=== PATIENT | female | born 1985 | race Caucasian/White ===

== ENCOUNTER 2016-10-30 17:14 | Inpatient (IN) | payer MEDICAID ==
[~2016-10-30] VITALS: Ht 144.8 cm; Wt 78.8 kg
[2016-10-30] MEDS ORDERED: PRENAT PO (17:26)
[2016-10-30 17:27] VITALS: BP 128/78; PULSE 81; RESP 18; Ht 144.8 cm; Wt 78.8 kg
--- NOTE | 2016-10-30 17:57 | RADRPT ---
PROCEDURE: US biophysical profile. CLINICAL INDICATION: Decreased motion. The patient is in labor. TECHNIQUE: Multiple sonographic images of the uterus were obtained. The images were revi ewed on a PACS workstation. COMPARISON: No prior studies are available for comparison. FINDINGS: There is a single live intrauterine gestation. heart rate is 129 beats per minute. The position is cephalic. The placenta is fundal grade II with no abruption or previa. The ALDO is 15.3 cm. (Normal = 5-20 cm.) Breathing Movement: 2 Gross Body Movement: 2 Tone: 2 Qualitative Amniotic Fluid Volume: 2 TOTAL: 8 IMPRESSION: 1. The biophysical score is 8/8. RPTAT: QQ .Tez Renae MD, Date Time Electronically viewed and signed by .Tez Renae MD, on 10/30/2016 17:57 .R/
[2016-10-30] MEDS ORDERED: LACTATED RINGER'S 1,000 ML IV SCH ×2 (18:00→20:16)
--- NOTE | 2016-10-30 18:00 | RADRPT ---
PROCEDURE: US OB CLINICAL INDICATION: LABOR TECHNIQUE: Multiple sonographic images of the pelvis were obtained. The images were reviewed on a PACS workstation. COMPARISON: None FINDINGS: The cervix is not well visualized. There is a single viable intrauterine gestation. Cardiac activity is present with 143 beats per minute. There is a vertex presentation. The placenta is fundal. There is no evidence for an abruption or placenta previa. There is a subjectively normal amount of amniotic fluid. Measurements were made in order to determine age. The results are as follows (cm): BPD =9.43 HC =33.27 AC =34.92 FL =7.51 Estimated gestational age by ultrasound of approximately 38 weeks, 3 days. The estimated date of delivery by ultrasound is 11/10/2016. Estimated gestational age by LMP of approximately 37 weeks, 2 days. The estimated date of delivery by LMP is 11/18/2016. EFW = 3535 grams (87th percentile) IMPRESSION: Single viable intrauterine gestation of approximately 38 weeks, 3 days . The estimated date of delivery is 11/10/2016 . Dating by ultrasound is within 8 days of dating by LMP. Cephalic presentation. RPTAT: EE Physician Rakesh Date Time Electronically viewed and signed by Physician Rakesh on 10/30/2016 18:00 /
[2016-10-30 18:50] LABS: BASOPHILS % 0.6 % (0.0-2.0); EOSINOPHILS # 0.2 10^3/ul (0.0-0.5); EOSINOPHILS % 3.5 % (0.0-7.0); HEMATOCRIT 39.5 % (37.0-47.0); HEMOGLOBIN 13.7 g/dl (12.0-16.0); LYMPHOCYTES % 32.6 % (15.0-51.0); MEAN CORPUSCULAR HEMOGLOBIN 31.6 pg (29.0-33.0); MEAN CORPUSCULAR HGB CONC 34.6 g/dl (32.0-37.0); MEAN CORPUSCULAR VOLUME 91.3 fl (82.0-101.0); MEAN PLATELET VOLUME 10.3 fl (7.4-10.4); MONOCYTE # 0.5 10^3/ul (0.3-0.9); MONOCYTES % 8.6 % (0.0-11.0); NEUTROPHIL # 3.4 10^3/ul (1.6-7.5); NEUTROPHILS % 54.7 % (39.0-77.0); PLATELET COUNT 181 10^3/UL (140-440); RED BLOOD COUNT 4.32 10^6/ul (4.20-5.40); RED CELL DISTRIBUTION WIDTH 14.3 % (11.5-14.5); UNCORRECTED WBC 6.2 10^3/ul (4.8-10.8); WHITE BLOOD COUNT 6.2 10^3/ul (4.8-10.8)
[2016-10-30 19:01] LABS: CONDITION 1
[2016-10-30 19:02] LABS: INR 0.94; PROTIME 12.6 Sec (12.2-14.2)
[2016-10-30] MEDS ORDERED: CARBOPROST 250 MCG INJ IM PRN (20:30)
[2016-10-30] MEDS ORDERED: CEFAZOLIN 2 GM/50 ML (PMX) 50 ML IV SCH (20:30)
[2016-10-30] MEDS ORDERED: OXYTOCIN 30 UNITS/LR 500 ML IV PRN (20:30)
[2016-10-30] MEDS ORDERED: MISOPROSTOL 200 MCG TAB PR PRN (20:30)
[2016-10-30] MEDS ORDERED: OXYTOCIN 30 UNITS/LR 500 ML IV SCH (20:30)
[2016-10-30] MEDS ORDERED: METHYLERGONOVINE 0.2 MG INJ IM PRN (20:30)
--- NOTE | 2016-10-30 20:46 | TRIAGE ---
OB Triage Datetime Report Generated by CPN: 10/30/2016 20:46 Datetime: 10/30/2016 20:28 Assessment Type: Admission Assessment Vaginal Bleeding: None Maternal Assessment Level of Consciousness: Fully Conscious DTR's/Clonus: DTRs 2+; No Clonus Headache: Denies Blurred Vision: No Respiratory Effort: Unlabored; Regular Rhythm; Equal Expansion Breath Sounds, Left: Clear and Equal Breath Sounds, Right: Clear and Equal Nausea/Vomiting: Denies RUQ Epigastric Pain: Denies Lower Extremities Edema: None Degree: None Upper Extremities Edema: None Degree: None Facial Edema: None Fall Risk Assessment History of Falling: (0) No Secondary Diagnosis: (0) No Ambulatory Aid: (0) Bedrest/Nurse Assist IV Therapy: (20) Yes Gait: (0) Normal/Bedrest/Immobile Mental Status: (0) Oriented to Own Ability Fall Score: 20 Fall Risk Score Definition: No Risk: No action required Pain Assessment Pain Scale: 0 Pain Presence: None/Denies Pain Type: N/A Datetime: 10/30/2016 19:56 Labor Evaluation Frequency: 1-5 Monitor Mode: External Duration (sec)2399: 50-120 Quality: Mild Pattern: Normal: <= 5 Contractions in 10 Minutes Resting Tone [place]: Relaxed Heart Rate FHR Baseline Rate: 150 Monitor Mode: External US FHR Baseline Changes: No Baseline Change Variability: Moderate 6-25 bpm Accelerations: 15X15 Decelerations: None Category: Category I Datetime: 10/30/2016 19:32 Vaginal Exam Dilatation (cms): 0.0 Effacement (%): 0 Station: -3 Exam By: Brian OLIVEIRA RN Vaginal Bleeding: None Cervix, Consistency: Firm Cervix, Position: Posterior Datetime: 10/30/2016 19:10 Assessment Type: Admission Assessment Maternal Assessment Level of Consciousness: Fully Conscious DTR's/Clonus: DTRs 2+; No Clonus Headache: Denies Blurred Vision: No Respiratory Effort: Unlabored; Regular Rhythm; Equal Expansion Breath Sounds, Left: Clear and Equal Breath Sounds, Right: Clear and Equal Nausea/Vomiting: Denies RUQ Epigastric Pain: Denies Lower Extremities Edema: None Degree: None Upper Extremities Edema: None Degree: None Facial Edema: None Fall Risk Assessment History of Falling: (0) No Secondary Diagnosis: (0) No Ambulatory Aid: (0) Bedrest/Nurse Assist IV Therapy: (0) No Gait: (0) Normal/Bedrest/Immobile Mental Status: (0) Oriented to Own Ability Fall Score: 0 Fall Risk Score Definition: No Risk: No action required Datetime: 10/30/2016 19:09 Comments: LOSS OF CONTACT Datetime: 10/30/2016 18:44 Labor Evaluation Frequency: OCCAS Monitor Mode: External Duration (sec)2399: 50-100 Quality: Mild Pattern: Normal: <= 5 Contractions in 10 Minutes Resting Tone [place]: Relaxed Heart Rate FHR Baseline Rate: 135 Monitor Mode: External US FHR Baseline Changes: No Baseline Change Variability: Moderate 6-25 bpm Accelerations: 15X15 Decelerations: None Category: Category I Datetime: 10/30/2016 18:10 Labor Evaluation Frequency: IRREGULAR Monitor Mode: External Duration (sec)2399: 50-120 Quality: Mild Pattern: Normal: <= 5 Contractions in 10 Minutes Resting Tone [place]: Relaxed Heart Rate FHR Baseline Rate: 140 Monitor Mode: External US Variability: Moderate 6-25 bpm Accelerations: 15X15 Decelerations: None Category: Category I Datetime: 10/30/2016 17:31 Assessment Type: Admission Assessment Time of Arrival: 10/30/2016 20:37 EGA: 37.2 Arrived From: Dr. Office Maternal Assessment Level of Consciousness: Fully Conscious DTR's/Clonus: DTRs 2+; No Clonus Headache: Denies Blurred Vision: No Respiratory Effort: Unlabored; Regular Rhythm; Equal Expansion Breath Sounds, Left: Clear and Equal Breath Sounds, Right: Clear and Equal Nausea/Vomiting: Denies RUQ Epigastric Pain: Denies Lower Extremities Edema: None Degree: None Upper Extremities Edema: None Degree: None Facial Edema: None Fall Risk Assessment History of Falling: (0) No Secondary Diagnosis: (0) No Ambulatory Aid: (0) Bedrest/Nurse Assist IV Therapy: (0) No Gait: (0) Normal/Bedrest/Immobile Mental Status: (0) Oriented to Own Ability Fall Score: 0 Fall Risk Score Definition: No Risk: No action required Datetime: 10/30/2016 17:30 Time of Arrival: 10/30/2016 17:10 Arrived By: Ambulatory Arrived From: Office Chief Complaint: R/O LABOR Movement: Present Contractions: Denies/Absent Rupture of Membranes: Denies Vaginal Bleeding: None Vaginal Discharge: Denies Recent Sexual Intercouse: Denies Abdominal Trauma: Not Applicable Patient Complaints: Other Time Provider Notified: 10/30/2016 18:01 Provider Notified: DR FLOWERS Initial Plan: NST, BPP AND EFW
[2016-10-30] MEDS ORDERED: morphine SULFATE/PF (10 MG/10 ML) INJ ONE (21:18)
[2016-10-30] MEDS ORDERED: CITRIC ACID/NA CITRATE 30 ML CUP ONE (21:22)
[2016-10-30] MEDS ORDERED: KETOROLAC 30 MG INJ ONE (21:42)
[2016-10-30] MEDS ORDERED: METOCLOPRAMIDE 10 MG INJ ONE (21:42)
[2016-10-30] MEDS ORDERED: ONDANSETRON 4 MG INJ ONE (21:42)
[2016-10-30] MEDS ORDERED: OXYTOCIN 30 UNITS/LR 500 ML IV ONE ×2 (21:42→22:15)
[2016-10-30] MEDS ORDERED: MEPERIDINE 25 MG INJ IV PRN (22:00)
[2016-10-30] MEDS ORDERED: METOCLOPRAMIDE 10 MG INJ IV PRN (22:00)
[2016-10-30] MEDS ORDERED: CITRIC ACID/NA CITRATE 30 ML CUP PO ONE (22:00)
[2016-10-30] MEDS ORDERED: DIPHENHYDRAMINE 50 MG INJ IV PRN ×2 (22:00→23:30)
[2016-10-30] MEDS ORDERED: HYDROmorphONE (0.2 MG/ML) 10ML SYG IV PRN ×3 (22:00)
[2016-10-30] MEDS ORDERED: ONDANSETRON 4 MG INJ IV PRN ×2 (22:00→23:30)
--- NOTE | 2016-10-30 22:31 | HP ---
Date/Time of Note Date/Time of Note DATE: 10/30/16 TIME: 22:30 OB - History Hx of Present Free Text/Dictation @37+wks GA with history of previous c/section in Labor CX changed from 0 to 2 cm Variables : 2 Para: 1 Care: Good Care Ultrasounds: Normal mid trimester US Obstetrical Complications: None Medical Complications: None Past Family/Social History * Past Medical, Surgical, Family and Obstetric Histories reviewed from chart. OB Admission Exam Vital Signs Vital Signs Vital Signs Date Time Temp Pulse Resp B/P Pulse Ox O2 Delivery O2 Flow Rate FiO2 10/30/16 17:27 98.1 81 18 128/78 Room Air Physical Exam Abdomen: WNL Extremities: Normal Reflexes: Normal Cervical Dilatation: 2cm Effacement: 75% Station: -1 Membranes: Intact Heart Rate: 140's Accelerations: Accelerations Present Varibility: Moderate Contractions on Admission: 6-10 Minutes Apart Last 72 hours Lab Results CBC & BMP 10/30/16 18:15 OB Assessment/Plan Reason for admission: section Plan: Section Other plan: @37+wks GA with history of previous c/section in Labor CX changed from 0 to 2 cm Variables SALOME FLOWERS M.D. Oct 30, 2016 22:31
--- NOTE | 2016-10-30 22:33 | OPR ---
Operative Report Planned Procedure Free Text/Dictation @37+wks GA with history of previous c/section in Labor CX changed from 0 to 2 cm Variables Procedure date Oct 30, 2016 Procedure(s) Repeat c/section Performed by: SALOME FLOWERS M.D. Assisting provider: CHARU BONILLA Anesthesiologist: SHAHRIAR VASQUEZ MD Pre-procedure diagnosis @37+wks GA with history of previous c/section in Labor CX changed from 0 to 2 cm Variables Anesthesia Type: spinal Procedure Description Under satisfactory [] anesthesia, the patient was prepped and draped and placed in a supine position, tilted to the left. Pfannenstiel incision was made, carried through the subcutaneous tissue. Bleeders brought under control with electrocautery. Fascia incised to the length of the incision. Rectus muscles from the fascia, divided midline. Peritoneum exposed, entered through a transverse incision. Exploration of abdomen revealed gravid uterus. Bladder flap was developed. Transverse incision was made in the lower segment of the uterus. Amniotic sac ruptured. [] amniotic fluid noted. [] Nasal oropharyngeal suction was performed. The baby was handed to the team for immediate attention. The placenta was delivered manually intact. Uterine cavity was cleaned with wet sponge and drainage established. Uterus closed in 2 layers using [] in continuous fashion. Peritoneal cavity irrigated with warm saline. Sponge, needle and instrument count reported to be correct. Abdominal peritoneum closed with [] continuously. Rectus muscle approximated with []. Fascia closed with [], and skin closed with dermobad. Estimated blood loss [600] mL. Urine bag contained []mL of urine Vacum used ,First vacuum was defected,Was coming off less than 2 seconds with minimum pressure,Second vacumm used Post-Procedure Findings: Live Baby [], Apgars [] and [], weight [], position [], [] presentation []cord. Specimen removed: Yes Pt Condition post procedure: stable Disposition: PACU Physician Certification I, the undersigned physician, hereby certify that I have discussed the procedure described in this consent form with this patient (or the patient's legal roofing sales representative), including: * The risk and benefits of the procedure; * Any adverse reactions that may reasonably be expected to occur; * Any alternative efficacious methods of treatment which may be medically viable ; * The potential problems that may occur during recuperation; * Potential for blood transfusion and associated risks/benefits; and * Any research or economic interest I may have regarding this treatment. I further certify that the patient/legally responsible person was encouraged to ask question and that all questions were answered. SALOME FLOWERS M.D. Oct 30, 2016 22:33
[2016-10-30] MEDS ORDERED: HYDROmorphONE 1 MG/ML SYG IV PRN ×3 (23:30)
[2016-10-30] MEDS ORDERED: NALOXONE (0.4 MG/ML) INJ IV PRN (23:30)
[2016-10-31 01:50] VITALS: BP 111/62; PULSE 82; RESP 18
[2016-10-31] MEDS: LACTATED RINGER'S 1,000 ML IV SCH ×3 (03:14→15:57)
[2016-10-31] MEDS ORDERED: LANOLIN 7 GM TUBE TOP PRN (03:30)
[2016-10-31] MEDS ORDERED: MISOPROSTOL 200 MCG TAB PR PRN (03:30)
[2016-10-31] MEDS ORDERED: NA PHOSPHATE/BIPHOS 133 ML ENEMA PR PRN ×2 (03:30)
[2016-10-31] MEDS ORDERED: CARBOPROST 250 MCG INJ IM PRN (03:30)
[2016-10-31] MEDS ORDERED: METHYLERGONOVINE 0.2 MG INJ IM PRN (03:30)
[2016-10-31] MEDS ORDERED: OXYTOCIN 30 UNITS/LR 500 ML IV PRN (03:30)
[2016-10-31] MEDS ORDERED: OXYCODONE/ACETAMINOPHEN (5/325) TAB PO PRN (03:30)
[2016-10-31 04:16] VITALS: BP 106/61; PULSE 85; RESP 17
[2016-10-31] MEDS: IBUPROFEN 600 MG TAB PO SCH ×3 (06:00→18:00)
[2016-10-31 07:34] LABS: BASOPHILS % 0.3 % (0.0-2.0); EOSINOPHILS # 0.1 10^3/ul (0.0-0.5); EOSINOPHILS % 1.6 % (0.0-7.0); HEMATOCRIT 36.5 % (37.0-47.0); HEMOGLOBIN 12.6 g/dl (12.0-16.0); LYMPHOCYTES # 1.3 10^3/ul (0.8-2.9); LYMPHOCYTES % 14.7 % (15.0-51.0); MEAN CORPUSCULAR HEMOGLOBIN 31.8 pg (29.0-33.0); MEAN CORPUSCULAR HGB CONC 34.4 g/dl (32.0-37.0); MEAN CORPUSCULAR VOLUME 92.3 fl (82.0-101.0); MEAN PLATELET VOLUME 10.2 fl (7.4-10.4); MONOCYTE # 0.6 10^3/ul (0.3-0.9); MONOCYTES % 6.5 % (0.0-11.0); NEUTROPHIL # 6.8 10^3/ul (1.6-7.5); NEUTROPHILS % 76.9 % (39.0-77.0); PLATELET COUNT 151 10^3/UL (140-440); RED BLOOD COUNT 3.96 10^6/ul (4.20-5.40); RED CELL DISTRIBUTION WIDTH 14.2 % (11.5-14.5); UNCORRECTED WBC 8.8 10^3/ul (4.8-10.8); WHITE BLOOD COUNT 8.8 10^3/ul (4.8-10.8)
[2016-10-31 07:58] LABS: CONDITION 1
[2016-10-31 08:40] VITALS: BP 108/66; PULSE 83; RESP 18
[2016-10-31] MEDS: KETOROLAC 30 MG INJ IV PRN ×2 (08:40→21:07)
[2016-10-31] MEDS: SENNA/DOCUSATE NA (8.6MG/50MG) TAB PO SCH ×2 (08:40→21:07)
[2016-10-31 12:50] VITALS: BP 111/61; PULSE 78; RESP 18
[2016-10-31 16:00] VITALS: BP 112/64; PULSE 78; RESP 17
--- NOTE | 2016-10-31 17:43 | QN ---
Documentation Comment POD#1 is stable afebrile No VB +Flatus Adequate urine VS stable GEn NAD Abd soft NT ND Incision intact Genitalia No blood at perinium --->Ambulation ---->Discharge plan tomorrow SALOME FLOWERS M.D. Oct 31, 2016 17:43
[2016-10-31 20:15] VITALS: BP 116/57; PULSE 88; RESP 17
[2016-11-01] MEDS ORDERED: IBUPROFEN 600 MG TAB PO SCH
[2016-11-01] MEDS: LACTATED RINGER'S 1,000 ML IV SCH ×2 (03:14→11:14)
[2016-11-01 04:30] VITALS: BP 119/74; PULSE 75; RESP 18
[2016-11-01] MEDS: IBUPROFEN 600 MG TAB PO SCH ×5 (05:20→23:49)
[2016-11-01 07:45] VITALS: BP 117/66; PULSE 76; RESP 18
[2016-11-01] MEDS: SENNA/DOCUSATE NA (8.6MG/50MG) TAB PO SCH ×2 (08:36→21:22)
[2016-11-01] MEDS ORDERED: INFLUENZA VIRUS VACCINE 0.5 ML (DISPENSING) IM* ONE (09:00)
[2016-11-01 16:57] VITALS: BP 120/79; PULSE 76; RESP 19
[2016-11-01 20:00] VITALS: BP 140/68; PULSE 73; RESP 18
--- NOTE | 2016-11-01 23:26 | QN ---
Documentation Comment POD#2 is stable afebrile No VB +Bm +voids VS stable GEn NAD Abd soft NT ND Incision intact Genitalia No blood at perinium --->Ambulation ---->Discharge plan tomorrow SALOME FLOWERS M.D. Nov 01, 2016 23:26
[2016-11-02 04:00] VITALS: BP 102/65; PULSE 77; RESP 18
[2016-11-02] MEDS: IBUPROFEN 600 MG TAB PO SCH ×2 (05:25→12:32)
[2016-11-02 07:30] VITALS: BP 123/82; PULSE 70; RESP 18
[2016-11-02] MEDS ORDERED: DIPHTH/TET/ACEL PERTUSS (ADULT) 0.5 ML VIAL IM* ONE (09:00)
[2016-11-02] MEDS: SENNA/DOCUSATE NA (8.6MG/50MG) TAB PO SCH (09:23)
[2016-11-02 15:30] VITALS: BP 125/82; PULSE 75; RESP 20
== END 2016-11-02 17:05 | disposition home or self-care (01) | DRG 766 ==
LOC: OBT 17:14 → L-D 17:16 → OBT 20:10 → L-D 20:10 → PP1 10-31 02:06
PROVIDERS: ADMIT Obstetrics & Gynecology; ATTEND Obstetrics & Gynecology
PROC: 10D00Z1 Extraction of Products of Conception, Low, Open Approach (ICD-10-PCS; principal; 2016-10-30 21:30)
PROC: 3E00X4Z Introduction of Serum, Toxoid and Vaccine into Skin and Mucous Membranes, External Approach (ICD-10-PCS; 2016-11-02)
DX: O34.211 Maternal care for low transverse scar from previous cesarean delivery (principal); Z23 Encounter for immunization; Z3A.37 37 weeks gestation of pregnancy; Z37.0 Single live birth
CPT/HCPCS: 36415; 76815; 76818; 85025; 85610; 85730; 86592; 86850; 86900; 86901; 90686; 90715; 94760; 96360; 96361; 99464; G0463; J0690; J1885; J2274; J2405; J2590; J2765; J7120